=== PATIENT | female | born 1985 | race Caucasian/White ===

== ENCOUNTER 2017-12-03 02:01 | Inpatient (IN) ==
[2017-12-03] MEDS ORDERED: OXYTOCIN/DEXTROSE 5%-WATER 30 UNITS/500 ML BAG IV ONE ×2 (03:40→18:16)
[2017-12-03] MEDS ORDERED: RINGER'S SOLUTION,LACTATED 1,000 ML IV ONE (03:40)
[2017-12-03] MEDS ORDERED: LIDOCAINE HCL 50 ML VIAL PERI PRN (03:40)
[2017-12-03] MEDS ORDERED: NALOXONE HCL 1 MG/1 ML SYRG IV PRN (09:06)
[2017-12-03] MEDS ORDERED: ONDANSETRON HCL/PF 2 MG/ML VIAL IV PRN (09:06)
[2017-12-03] MEDS ORDERED: BUPIVACAINE HCL/0.9 % NACL/PF 250 ML EP PRN (09:06)
[2017-12-03] MEDS ORDERED: fentaNYL CITRATE/PF 50 MCG/ML AMPUL IT SCH (09:15)
[2017-12-03] MEDS ORDERED: RINGER'S SOLUTION,LACTATED 1,000 ML IV PRN (09:31)
[2017-12-03] MEDS ORDERED: DEXTROSE 5%-LACTATED RINGERS 1,000 ML IV PRN (09:46)
--- NOTE | 2017-12-03 10:00 | OR ---
Anesthesia Pre Procedure Eval Date of Service: 12/03/17 Pre Procedure Evaluation: Anesthesia Pre Procedure Evaluation Heart Rate: 83 Blood Pressure: 124/68 Temperature: 0.8C Respiratory Rate: 18 SaO2: 97 DATE: 12/03/2017 TIME: 10 AM INDICATIONS: Labor, labor pain PAST MEDICAL HISTORY: 2 para 0 patient in active labor requesting labor analgesia History of GERD: No History of smoking:No History of sleep apnea:No EXAM: Heart regular; lungs clear ASSESSMENT OF MEDICAL STATUS: Appropriate candidate for labor analgesia PLANNED PROCEDURE: Combination spinal epidural for labor analgesia Home Medications: HOME MEDICATIONS Levothyroxine Sodium 75 mcg PO DAILY 07/05/12 [Last Taken 12/02/17 07:00] Docusate Sodium [Colace] 100 mg PO BID 12/03/17 [Last Taken 12/02/17 20:30] Vits96/Iron Fum/Folic [ S] 1 tab PO DAILY 12/03/17 [Last Taken 12/02/17 20:30]
--- NOTE | 2017-12-03 10:17 | OR ---
Anesthesia Procedure Note - Anesthesia Procedure Note Date of Service: 12/03/17 Narrative: 12/03/17 10:15 ANESTHESIA PROCEDURE NOTE Date of Procedure: 12/03/2017 Time of procedure: 10 AM. Performed by: JOHNNA Scott CRNA, MSN Temperature Regulator Pyrometer: Michelle Cash RN. Preprocedure diagnosis: Active labor, labor pain. Post procedure diagnosis: Same. Procedure:Epidural for labor analgesia L3 4. Indications: Labor pain. Findings: See below. Details of the procedure: The patient was placed on the side of the bed in sitting positionand prepped with DuraPrep then draped in a sterile fashion. Lidocaine 1% was infiltrated to the skin and subcutaneous tissues at the level of the L3 4 interspace. An 18-gauge Touhy needle was used to approach the epidural space with loss of resistance technique. Once loss of resistance was achieved a 27-gauge spinal needle was passed through the epidural needle and CSF was contacted. After CSF returned, 20 mcg of fentanyl was injected in the spinal needle was removed the epidural catheter was then threaded approximately 4 cm in the epidural needle was removed. The catheter was taped in place and after careful aspiration 3 mL of 1.5% lidocaine with 1-200,000 epinephrine was injected without change in maternal heart rate or sensorium. . EBL: Minimal. Fluids: N/A. Specimen: N/A. Post procedure condition: The patient tolerated the procedure well with good relief. No complications were noted. Thank you for this consultation. Kevin Benton CRNA, ARNP, MSN
--- NOTE | 2017-12-03 10:57 | PN ---
Progess Note - Interim Date: 12/03/17 Time: 10:54 - seen at 0840 Narrative: 12/03/17 10:54 Patient desiring an epidural Vital signs stable. Pitocin at 6 mu/min turned down to 4 mU/m. FHT: 140 baseline, reassuring Contractions q 1-3 min Cervix: 4/95/-1, spontaneous rupture of membranes-clear Impression: Intrauterine at 40-3/7 weeks in labor Plan: Requested epidural
[2017-12-03] MEDS ORDERED: BENZOCAINE/MENTHOL 81 SPRAY CAN TP PRN (18:16)
[2017-12-03] MEDS ORDERED: SENNOSIDES 8.6 MG TABLET PO PRN (18:16)
[2017-12-03] MEDS ORDERED: BISACODYL 10 MG SUPP.RECT RC PRN (18:16)
[2017-12-03] MEDS ORDERED: HYDROCORTISONE 30 APPL TUBE TP PRN (18:16)
[2017-12-03] MEDS ORDERED: oxyCODONE HCL/ACETAMINOPHEN 1 TAB TABLET PO PRN ×2 (18:16)
[2017-12-03] MEDS ORDERED: GLYCERIN/WITCH HAZEL LEAF 40 APPL BOX TP PRN (18:16)
--- NOTE | 2017-12-03 18:21 | OR ---
Operative Report - Dictated Report Narrative: Spontaneous vaginal delivery of viable female at 1756 on 12/03/2017 with Apgars 9 and 9, weighing 3634 g in EDGAR position with tight nuchal cord 1. Cord clamping delayed approximately 1 minute Placenta delivered complete, intact, with three vessel cord Estimated blood loss: 100 mL Anesthesia: epidural Lacerations: First-degree vaginal laceration and bilateral periurethral abrasions with no repair needed.
[2017-12-03] MEDS: IBUPROFEN 800 MG TABLET PO PRN (20:29)
[2017-12-03] MEDS ORDERED: DOCUSATE SODIUM 100 MG CAPSULE PO SCH (21:00)
[2017-12-03] MEDS: DOCUSATE SODIUM 100 MG CAPSULE PO SCH (21:58)
[2017-12-04] MEDS: IBUPROFEN 800 MG TABLET PO PRN ×3 (03:58→19:30)
[2017-12-04] MEDS: LEVOTHYROXINE SODIUM 75 MCG TABLET PO SCH (06:51)
--- NOTE | 2017-12-04 07:02 | PN ---
Subjective - Date and Time Seen Date: 12/04/17 Time: 07:01 Objective - Vitals Vitals: Last Vital Signs Temp 36.5 C 12/04/17 04:35 Pulse 70 12/04/17 04:35 Resp 16 12/04/17 04:35 BP 118/59 12/04/17 04:35 Pulse Ox 99 12/04/17 04:35 Patient denies complaints. Lochia wnl Abdomen - soft, nontender Uterus - firm, at umbilicus - 1 No calf tenderness Impression: day #1 - s/p spontaneous vaginal delivery. Hypothyroidism-stable Plan: Continue routine care Cauti Physician Documentation - Urinary Catheter Management Urethral (Byers) Date of Insertion: 12/03/17 Time of Insertion: 10:55 Date of Removal: 12/03/17 Time of Removal: 17:38
[2017-12-04] MEDS: DOCUSATE SODIUM 100 MG CAPSULE PO SCH ×2 (08:50→21:19)
[2017-12-04] MEDS: PRENATAL VITS96/IRON FUM/FOLIC 1 TAB TABLET PO SCH (08:50)
[2017-12-05] MEDS: IBUPROFEN 800 MG TABLET PO PRN (03:43)
[2017-12-05] MEDS: LEVOTHYROXINE SODIUM 75 MCG TABLET PO SCH (07:46)
[2017-12-05] MEDS: PRENATAL VITS96/IRON FUM/FOLIC 1 TAB TABLET PO SCH (08:07)
[2017-12-05] MEDS: DOCUSATE SODIUM 100 MG CAPSULE PO SCH (08:07)
[2017-12-05 08:35] VITALS: BP 129/74
--- NOTE | 2017-12-05 12:39 | PN ---
Subjective - Date and Time Seen Date: 12/05/17 Time: 12:38 Objective - Vitals Vitals: Last Vital Signs Temp 36.6 C 12/05/17 08:16 Pulse 70 12/05/17 08:16 Resp 16 12/05/17 08:16 BP 129/74 12/05/17 08:16 Pulse Ox 98 12/05/17 08:16 Patient denies complaints. Lochia wnl Abdomen - soft, nontender Uterus - firm, at umbilicus - 2 No calf tenderness Impression: day #2 - s/p spontaneous vaginal delivery. Plan: Routine discharge instructions Cauti Physician Documentation - Urinary Catheter Management Urethral (Byers) Date of Insertion: 12/03/17 Time of Insertion: 10:55 Date of Removal: 12/03/17 Time of Removal: 17:38
== END 2017-12-05 12:00 | disposition home or self-care (01) | DRG 775 ==
LOC: OBCLINIC 02:01 → OB 03:42
PROVIDERS: ADMIT Obstetrics & Gynecology; ATTEND Obstetrics & Gynecology
DX: O69.1XX0 Labor and delivery complicated by cord around neck, with compression, not applicable or unspecified; E03.9 Hypothyroidism, unspecified; Z37.0 Single live birth; O70.0 First degree perineal laceration during delivery; Z3A.40 40 weeks gestation of pregnancy; O99.284 Endocrine, nutritional and metabolic diseases complicating childbirth
CPT/HCPCS: 59025; J2405

== ENCOUNTER 2020-09-23 00:01 | Inpatient (IN) ==
[2020-09-23] MEDS ORDERED: ONDANSETRON 4 MG TAB.RAPDIS PO PRN (00:06)
[2020-09-23] MEDS ORDERED: RINGER'S SOLUTION,LACTATED 1,000 ML IV ONE (00:06)
[2020-09-23] MEDS ORDERED: OXYTOCIN/0.9 % SODIUM CHLORIDE 30 UNITS/500 ML BAG IV ONE ×2 (00:06→07:59)
[2020-09-23] MEDS ORDERED: BUPIVACAINE HCL/0.9 % NACL/PF 250 ML EP PRN (04:18)
[2020-09-23] MEDS ORDERED: ONDANSETRON HCL/PF 2 MG/ML VIAL IV PRN (04:18)
[2020-09-23] MEDS ORDERED: NALOXONE HCL 1 MG/1 ML SYRG IV PRN (04:18)
[2020-09-23] MEDS ORDERED: fentaNYL CITRATE/PF 50 MCG/ML AMPUL IT SCH (04:30)
[2020-09-23] MEDS ORDERED: DEXTROSE 5%-LACTATED RINGERS 1,000 ML IV PRN (05:30)
--- NOTE | 2020-09-23 05:44 | ANES ---
Anesthesia Pre Procedure Eval Vitals/Labs: Last Vital Signs Temp 36.4 C 09/23/20 00:25 Pulse 85 09/23/20 00:25 Resp 18 09/23/20 00:25 BP 121/62 09/23/20 00:25 Pulse Ox 98 09/23/20 00:25 HOME MEDICATIONS acetaminophen 325 mg tablet 325 mg PO Q4H PRN 02/19/20 [Last Taken Unknown] prenat.vits,cresencio,svs-hijl-zibjn 1 tab PO DAILY 02/19/20 [Last Taken 09/22/20] ferrous sulfate 325 mg (65 mg iron) tablet 325 mg PO DAILY #30 tab 07/13/20 [Last Taken 09/22/20] ascorbate calcium (vitamin C) 500 mg tablet 500 mg PO DAILY 07/29/20 [Last Taken 09/22/20] sennosides 8.6 mg capsule 8.6 mg PO HS 07/29/20 [Last Taken 09/22/20] docusate sodium 100 mg capsule 100 mg PO BID 08/24/20 [Last Taken 09/22/20] magnesium 250 mg tablet 250 mg PO HS 08/24/20 [Last Taken 09/22/20] polyethylene glycol 3350 17 gram/dose oral powder 17 g PO DAILY PRN 08/24/20 [Last Taken Unknown] amoxicillin 875 mg tablet 875 mg PO BID 09/21/20 [Last Taken 09/22/20] loratadine 10 mg tablet 10 mg PO DAILY 09/21/20 [Last Taken 09/22/20] Allergies/Adverse Reactions: Allergies Allergy/AdvReac Type Severity Reaction Status Date / Time Shellfish *RETIRED-01/27/13 AdvReac Severe Anaphylaxis Verified 09/23/20 00:16 [Shellfish] morphine AdvReac Intermediate Hives Verified 09/23/20 00:16 - Planned Procedure Planned Procedure: elective induction Medication List Reviewed:: Yes Allergies Verified: Yes Medical History (Last Reviewed 09/23/20 @ 05:43 by Guillaume Pinto CRNA) Vulvitis (Resolved) Onset Date: 06/28/12 Acute sinusitis (Acute) Onset Date: 08/14/11 Peroneal tendinitis (Acute) Onset Date: 06/05/12 Other synovitis and tenosynovitis (Acute) Onset Date: 06/05/12 sinus tarsitis Osteoarthritis (Chronic) Onset Date: 08/03/11 Hypothyroidism (Chronic) Onset Date: 05/03/12 Bruxism (Acute) Onset Date: 04/16/15 Bacterial vaginitis (Acute) Onset Date: 07/25/12 Back pain (Acute) Onset Date: 08/03/11 Anemia affecting (Acute) Onset Date: 09/03/17 07/13/20 Cellulitis Right arm d/t wasp sting Wasp sting arm swollen and was treated for Cellulitis Milagros's disease Onset Date: Unknown Amenorrhea Onset Date: Unknown Cervical dysplasia Onset Date: ~2010 Cervical vertebral closed fracture Onset Date: Unknown C7 Chlamydia Onset Date: ~2004 tx'd Fracture of thoracic vertebra, closed Onset Date: Unknown T5 and T6 Rotator cuff tear Onset Date: 2000 Head injury, closed, with brief LOC Onset Date: Unknown Basilar Skull Fx Surgical History (Last Reviewed 09/23/20 @ 05:43 by Guillaume Pinto CRNA) [place] teeth extracted Onset Date: 2007 Hx of colposcopy with cervical biopsy Onset Date: 06/28/10 06/28/10- MIMI I 12/27/10- Neg Hx of repair of rotator cuff Onset Date: Unknown left Family History (Last Reviewed 09/23/20 @ 05:43 by Guillaume Pinto CRNA) Grandmother Diabetes Type II Maternal Grandmother Grandfather , Maternal Myocardial infarction during open heart surgery Grandmother Lung cancer Paternal - Family Anesthesia History Family History:: no untoward family reactions to anesthesia - Airway/Neck/Teeth Within Normal Limits:: Yes Teeth Condition: intact Neck Exam: full range of motion Mallampatti Score: 2 Thyromental (T-M) distance: > 6 cm Mandibulo Hyoid distance: > 3 cm - Respiratory Respiratory Physical: lungs clear Smoking Status: Never smoker Sleep Apnea currently treated: No Sleep Apnea by current assessment: No - Cardiovascular Tolerate Activity: Good Heart Sounds: S1 & S2, Regular - Gastrointestinal NPO since: MN - Anesthesia Assessment and Plan ASA Class: PS, II, E Anesthesia Type Plan: Epidural Planned difficult intubation/equipment available: No
--- NOTE | 2020-09-23 05:44 | ANES ---
Post Anesthesia Assessment - Vital Signs Vitals: Last Vital Signs Temp 36.4 C 09/23/20 00:25 Pulse 85 09/23/20 00:25 Resp 18 09/23/20 00:25 BP 121/62 09/23/20 00:25 Pulse Ox 98 09/23/20 00:25 Airway Patency: Normal - Mental Status Level Of Consciousness: Awake - Pain Level Pain Score: 2 - N/V Assessment Nausea/Vomiting Presence: None Dehydration:: No
--- NOTE | 2020-09-23 05:44 | ANES ---
Post Anesthesia Discharge - Transfer of Care Transfer of Care handoff given to nurse: Yes - Anesthesia Post Op Note Anesthesia Post Op Note: Care transferred to OB RN
--- NOTE | 2020-09-23 05:45 | ANES ---
Anesthesia Procedure Note Procedure Note: ANESTHESIA PROCEDURE NOTE Date of Procedure: 09/23/2020 Time of procedure: 11 06. Performed by: Jp Pinto CRNA Teleprinter Installer: None. Preprocedure diagnosis: Active labor. Post procedure diagnosis: Same. Procedure: Insertion of labor epidural. Indications: The patient is a 34-year-old multigravida female in active labor requesting labor epidural for pain management. Findings: See below. Details of the procedure: The patient was placed in a sitting position. Back was prepped with DuraPrep. Patient was then draped in a sterile fashion. Lidocaine 1% was infiltrated to the skin and subcutaneous tissues at the level of the L3 4 interspace. The epidural space was identified using a 18-gauge Tuohy needle with [id number] technique. 20 mcg fentanyl was given intrathecally using a 27 ga. spinal needle. Epidural catheter was inserted without difficulty. Negative test dose was elicited using 5 mL of 1.5% preservative-free lidocaine plus epinephrine 1 200,000. The epidural catheter was then taped and secured in place. EBL: Minimal. Fluids: N/A. Specimen: N/A. Post procedure condition: The patient tolerated the procedure well. No complications were noted. Thank you for this consultation. Angelo CRNA
--- NOTE | 2020-09-23 06:32 | HP ---
Chief Complaint - Chief Complaint Date of Service: 09/23/20 Time of Service: 05:00 Chief Complaint: elective induction of labor History of Present Illness: 34 yo at 39w1d presents to L&D for elective induction of labor. This complicated by anemia and hypothyroid. Rh negative Rubella immune GBS negative Medical History (Last Reviewed 09/23/20 @ 06:24 by Deep Hanson DO) Vulvitis (Resolved) Onset Date: 06/28/12 Acute sinusitis (Acute) Onset Date: 08/14/11 Peroneal tendinitis (Acute) Onset Date: 06/05/12 Other synovitis and tenosynovitis (Acute) Onset Date: 06/05/12 sinus tarsitis Osteoarthritis (Chronic) Onset Date: 08/03/11 Hypothyroidism (Chronic) Onset Date: 05/03/12 Bruxism (Acute) Onset Date: 04/16/15 Bacterial vaginitis (Acute) Onset Date: 07/25/12 Back pain (Acute) Onset Date: 08/03/11 Anemia affecting (Acute) Onset Date: 09/03/17 07/13/20 Cellulitis Right arm d/t wasp sting Wasp sting arm swollen and was treated for Cellulitis Milagros's disease Onset Date: Unknown Amenorrhea Onset Date: Unknown Cervical dysplasia Onset Date: ~2010 Cervical vertebral closed fracture Onset Date: Unknown C7 Chlamydia Onset Date: ~2004 tx'd Fracture of thoracic vertebra, closed Onset Date: Unknown T5 and T6 Rotator cuff tear Onset Date: 2000 Head injury, closed, with brief LOC Onset Date: Unknown Basilar Skull Fx Surgical History: Surgical History (Last Reviewed 09/23/20 @ 06:25 by Deep Hanson DO) [place] teeth extracted Onset Date: 2007 Hx of colposcopy with cervical biopsy Onset Date: 06/28/10 06/28/10- MIMI I 12/27/10- Neg Hx of repair of rotator cuff Onset Date: Unknown left Family History: Family History (Last Reviewed 09/23/20 @ 06:25 by Deep Hanson DO) Grandmother Diabetes Type II Maternal Grandmother Grandfather , Maternal Myocardial infarction during open heart surgery Grandmother Lung cancer Paternal Social History: (Last Reviewed 09/23/20 @ 06:25 by Deep Hanson DO) Social History: adopted: No care home: No Marital status: household members: children number of children: 1 current occupational status: employed current occupation: Registered Nurse, BSN current occupational exposures/hazards: No Highest level of school completed/degree received: Bachelor's degree Sexually Active: Yes Service: No Tobacco: Smoking Status: Never smoker Alcohol: alcohol intake: current alcohol intake frequency: a few times a week details: none since +UPT Substance Use: substance use type: does not use Dietary Habits: caffeine: Yes Type: coffee daily servings of milk/calcium: 2-4 Exercise: frequency: 3-4 times per week Elida/Amish: agree to transfusion: Yes Personal Safety: victim of physical abuse: No victim of emotional abuse: No Review Of Systems (GEN) - Review of Systems Generalized/Overall Review: Present: No Symptoms Reported EENTM: Present: No Symptoms Reported Respiratory: Present: No Symptoms Reported Cardiac: Present: No Symptoms Reported Abdominal: Present: Constipation. Absent: Nausea, Vomiting, Abdominal Pain, Diarrhea Genitourinary: Present: No Symptoms Reported Musculoskeletal: Present: No Symptoms Reported Neurological: Present: No Symptoms Reported Skin: Present: No Symptoms Reported Endocrine: Present: No Symptoms Reported Allergies/Adverse Reactions: Allergies Allergy/AdvReac Type Severity Reaction Status Date / Time Shellfish *RETIRED-01/27/13 AdvReac Severe Anaphylaxis Verified 09/23/20 00:16 [Shellfish] morphine AdvReac Intermediate Hives Verified 09/23/20 00:16 Home Medications: HOME MEDICATIONS acetaminophen 325 mg tablet 325 mg PO Q4H PRN 02/19/20 [Last Taken Unknown] prenat.vits,cresencio,dah-hdem-bylzg 1 tab PO DAILY 02/19/20 [Last Taken 09/22/20] ferrous sulfate 325 mg (65 mg iron) tablet 325 mg PO DAILY #30 tab 07/13/20 [Last Taken 09/22/20] ascorbate calcium (vitamin C) 500 mg tablet 500 mg PO DAILY 07/29/20 [Last Taken 09/22/20] sennosides 8.6 mg capsule 8.6 mg PO HS 07/29/20 [Last Taken 09/22/20] docusate sodium 100 mg capsule 100 mg PO BID 08/24/20 [Last Taken 09/22/20] magnesium 250 mg tablet 250 mg PO HS 08/24/20 [Last Taken 09/22/20] polyethylene glycol 3350 17 gram/dose oral powder 17 g PO DAILY PRN 08/24/20 [Last Taken Unknown] amoxicillin 875 mg tablet 875 mg PO BID 09/21/20 [Last Taken 09/22/20] loratadine 10 mg tablet 10 mg PO DAILY 09/21/20 [Last Taken 09/22/20] Exam - Exam Vital Signs: Vital Signs - Last Taken Temp 36.4 C 09/23/20 00:25 Pulse 85 09/23/20 00:25 Resp 18 09/23/20 00:25 BP 121/62 09/23/20 00:25 Pulse Ox 98 09/23/20 00:25 Constitutional: Present: Alert, Oriented x3, Cooperative, No distress ENT Exam: Present: hearing grossly normal Neck: Present: non-tender, supple, trachea midline. Absent: thyromegaly Breasts: Present: Exam deferred Respiratory: Present: lungs clear, no respiratory distress Cardiovascular/Chest: Present: regular rate, rhythm, no edema Abdomen: Present: soft, nontender, no rebound tenderness, other - gravid /Rectal: Present: Other - 5/80/-4 Extremity: Present: no pedal edema, no calf tenderness Skin Exam: Present: normal color, warm/dry, no cyanosis Neurologic: Present: alert, normal mood/affect, oriented x 3 Appearance: Present: appropriate appearance, appropriate insight Eye contact: Present: cooperative, good eye contact Thoughts: Present: normal thought pattern, normal mood /affect Assessment/Plan - Assessment/Plan (1) Encounter for elective induction of labor Assessment: Admit for pitocin induction of labor. Epidural PRN. 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
--- NOTE | 2020-09-23 06:43 | PN ---
Progess Note - Interim Date: 09/23/20 Time: 06:40 Narrative: 09/23/20 06:40 Patient comfortable with epidural Vital signs stable. Pitocin at 6 mu/min. FHT: 120 baseline, reassuring contractions q 2-3 min Cervix: Rim/-1 Impression: Intrauterine at 39 1/7 weeks induction of labor prog ressing well. Plan: Anticipate normal spontaneous vaginal delivery soon.
[2020-09-23] MEDS ORDERED: IBUPROFEN 800 MG TABLET PO PRN (07:59)
[2020-09-23] MEDS ORDERED: SENNOSIDES 8.6 MG TABLET PO PRN (07:59)
[2020-09-23] MEDS ORDERED: BISACODYL 10 MG SUPP.RECT RC PRN (07:59)
[2020-09-23] MEDS ORDERED: GLYCERIN/WITCH HAZEL LEAF 40 APPL BOX TP PRN (07:59)
[2020-09-23] MEDS ORDERED: HYDROCORTISONE 30 APPL TUBE TP PRN (07:59)
[2020-09-23] MEDS ORDERED: oxyCODONE HCL/ACETAMINOPHEN 1 TAB TABLET PO PRN (07:59)
[2020-09-23] MEDS ORDERED: BENZOCAINE/MENTHOL 81 SPRAY CAN TP PRN (07:59)
--- NOTE | 2020-09-23 08:01 | OR ---
Operative Report - Dictated Report Narrative: Spontaneous vaginal delivery of vigorously crying viable male at 0739 on 09/23/2020 with Apgars 9 and 9, weighing 3490 g in EDGAR position. Cord clamping delayed approximately 1 minute Placenta delivered complete, intact, with three vessel cord Estimated blood loss: Less than 50 ml Anesthesia: Epidural Lacerations: Bilateral periurethral abrasions with no repair needed. History for History for Definition: * The number of deliveries resulting in a live the patient experienced prior to current hospitalization * The previous delivery of live twins or any live multiple gestation is considered one live event. *If primagravida or nulliparous is documented select zero for the number of previous live births. Live Events: Live Events: 1
[2020-09-23] MEDS: IBUPROFEN 800 MG TABLET PO PRN (11:41)
[2020-09-23] MEDS: DOCUSATE SODIUM 100 MG CAPSULE PO SCH ×2 (17:25→22:00)
[2020-09-24] MEDS: IBUPROFEN 800 MG TABLET PO PRN ×3 (03:08→15:54)
[2020-09-24] MEDS: DOCUSATE SODIUM 100 MG CAPSULE PO SCH ×2 (09:28→21:29)
--- NOTE | 2020-09-24 14:59 | PN ---
Subjective - Date and Time Seen Date: 09/24/20 Time: 14:58 Objective - Vitals Vitals: Last Vital Signs Temp 36.4 C 09/24/20 09:00 Pulse 88 09/24/20 09:00 Resp 20 09/24/20 09:00 BP 111/54 09/24/20 09:00 Pulse Ox 98 09/24/20 09:00 Patient denies complaints. Breast feeding well. Lochia wnl abdomen - soft, nontender Uterus -firm, at umbilicus - 1 No calf tenderness Impression: day #1 - s/p spontaneous vaginal delivery. 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
[2020-09-25] MEDS: IBUPROFEN 800 MG TABLET PO PRN (07:18)
[2020-09-25 07:39] VITALS: BP 133/63
--- NOTE | 2020-09-25 09:00 | PN ---
Subjective - Date and Time Seen Date: 09/25/20 Time: 09:00 Objective - Vitals Vitals: Last Vital Signs Temp 36.3 C 09/25/20 07:38 Pulse 74 09/25/20 07:38 Resp 18 09/25/20 07:38 BP 133/63 09/25/20 07:38 Pulse Ox 98 09/25/20 07:38 Patient denies complaints. Breast-feeding well Lochia wnl abdomen - soft, nontender Uterus -firm, at umbilicus - 2 No calf tenderness Impression: day #2 - s/p spontaneous vaginal delivery. 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
--- NOTE | 2020-09-25 09:04 | DS ---
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 Her course was uncomplicated and she was discharged on day 2 with routine discharge instructions. Discharge Location: Home Disposition: Home self-care Condition: Good Referrals: Fermin Hamilton MD [Primary Care Provider] - Activity on Discharge:: Activity as tolerated, Pelvic Rest Discharge Diet: General/regular food Additional Patient Instructions (free text): Your post follow up appointment with Dr. Hanson is scheduled October 21 at 9:15. Max's follow up appointment is scheduled with Dr. Choi at [facility] on Sunday September 27, 2020 at 9:15 a.m. Please call [facility] or [facility] with any problems or concerns. Max's Blood type is A Negative, his weight today is 7lbs 0.6oz. His bili level at 45 hours of life was 7.2. He has passed his hearing screen, his CHD screen, and his metabolic screen has been drawn. Please continue to feed him on demand or every 2-3 hours. Keep him on him back to sleep with no loose blankets or other objects in his sleeping space. Thank you for choosing [facility] for your special delivery of your sweet baby boy. Please call if you have any questions or concerns. [facility] [phone] [facility] [phone] Complete Home Medications List: Complete Home Medication List: prenat.vits,cresencio,uuf-bzyk-abffo 1 tab PO DAILY 02/19/20 ferrous sulfate 325 mg (65 mg iron) tablet 325 mg PO DAILY #30 tab 07/13/20 ascorbate calcium (vitamin C) 500 mg tablet 500 mg PO DAILY 07/29/20 sennosides 8.6 mg capsule 8.6 mg PO HS 07/29/20 docusate sodium 100 mg capsule 100 mg PO BID 08/24/20 magnesium 250 mg tablet 250 mg PO HS 08/24/20 polyethylene glycol 3350 17 gram/dose oral powder 17 g PO DAILY PRN 08/24/20 loratadine 10 mg tablet 10 mg PO DAILY 09/21/20 - Plan Discharge to:: Home Follow up in office in:: 3-4 weeks - [place] Information Weight (Grams): 3,490 Sex: Male Score 1 min: 9 Score 5 min: 9
[2020-09-25] MEDS: DOCUSATE SODIUM 100 MG CAPSULE PO SCH (10:03)
== END 2020-09-25 09:00 | disposition home or self-care (01) | DRG 807 ==
LOC: OB 00:06
PROVIDERS: ADMIT Obstetrics & Gynecology; ATTEND Obstetrics & Gynecology